=== PATIENT | female | born 1950 | race American Indian/Alaskan Native ===

== ENCOUNTER 2017-09-04 14:13 | Emergency (ER) | payer MEDICARE, BC ==
[2017-09-04 14:19] VITALS: BMI 25.7
[2017-09-04 14:24] VITALS: RESP 18; TEMP 98.7; O2SAT 97
--- NOTE | 2017-09-04 14:54 | RAD ---
HISTORY: chest pain COMPARISON: 12/29/2014 FINDINGS: LUNGS: No active pulmonary disease. PLEURA: No significant pleural effusion identified, no pneumothorax apparent. CARDIOVASCULAR: Mild cardiomegaly OSSEOUS STRUCTURES: No significant abnormalities. VISUALIZED UPPER ABDOMEN: Normal. OTHER FINDINGS: None. IMPRESSION: No active disease.
[2017-09-04 15:29] LABS: URINE BILIRUBIN NEGATIVE (NEGATIVE); URINE BLOOD NEGATIVE (NEGATIVE); URINE GLUCOSE (UA) NEGATIVE (NEGATIVE); URINE LEUKOCYTE ESTERASE NEGATIVE Leu/uL (NEGATIVE); URINE PROTEIN TRACE mg/dL (<30 mg/dL); URINE UROBILINOGEN 0.2 E.U./dL (<1 E.U./dL)
[2017-09-04 15:32] LABS: BASO # 0.02 K/mm3 (0.0-2.0); BASO % 0.3 % (0.0-3.0); EOS # 0.3 (0.0-0.7); EOS % 4.3 % (1.5-5.0); GRAN # 3.32 (1.4-6.5); GRAN % 53.3 % (50.0-68.0); HEMOGLOBIN 12.6 g/dL (12.0-16.0); LYMPH # 2.3 (1.2-3.4); LYMPH % 36.6 % (22.0-35.0); MEAN CELL VOLUME 88.6 fl (80.0-105.0); MEAN CORPUSCULAR HEMOGLOBIN 28.8 pg (25.0-35.0); MEAN CORPUSCULAR HGB CONC 32.5 g/dl (31.0-37.0); MEAN PLATELET VOLUME 10.9 fl (7.0-11.0); MONO # 0.3 (0.1-0.6); MONO % 5.5 % (1.0-6.0); RBC 4.38 10^6/uL (3.5-6.1); RED CELL DISTRIBUTION WIDTH 13.3 % (11.5-14.5); WHITE BLOOD COUNT 6.2 10^3/ul (4.5-11.0)
[2017-09-04 15:35] LABS: URINE APPEARANCE CLEAR (CLEAR); URINE COLOR YELLOW (YELLOW)
[2017-09-04 15:45] LABS: URINE BACTERIA FEW (NEG); URINE RBC NEGATIVE /hpf (0-2)
[2017-09-04 15:46] LABS: ALB/GLOB RATIO 1.4 (1.1-1.8); ALBUMIN 4.6 g/dL (3.0-4.8); ALT/SGPT 52 U/L (7-56); AST/SGOT 40 U/L (14-36); BLOOD UREA NITROGEN 17 mg/dL (7-21); CALCIUM 11.4 mg/dL (8.4-10.5); GFR AFRICAN-AMERICAN > 60; GFR NON-AFRICAN AMERICAN > 60
[2017-09-04 16:04] LABS: TROPONIN I < 0.01 ng/mL
[2017-09-04 16:18] VITALS: BP 159/107; PULSE 89
--- NOTE | 2017-09-04 19:10 | CARD ---
APPROVED REPORT EKG Measurement Heart [id number] <Conclusion> Sinus tachycardia with occasional premature ventricular complexes Possible Left atrial enlargement Left axis deviation Left ventricular hypertrophy with repolarization abnormality Abnormal ECG
--- NOTE | 2017-09-04 20:42 | ED PDOC ---
Arrival/HPI - General Chief Complaint: Palpitations Time Seen by Provider: 09/04/17 14:35 Historian: Patient - History of Present Illness Narrative History of Present Illness (Text): 09/04/17 14:36 A 66 year old female, whose past medical history includes hypertension, presents to the emergency department complaining of ongoing palpitations, worsened today. Patient states she has "a funny feeling when having palpitations ". 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 Patient denies any chest pain, shortness of breath, fever, cough or any other complaints at this time. Symptom Onset: Sudden Symptom Course: Unchanged Activities at Onset: Rest Context: Home Past Medical History - Provider Review Nursing Documentation Reviewed: Yes - Past History Past History: No Previous - Infectious Disease Hx of Infectious Diseases: None - Tetanus Immunization Tetanus Immunization: Unknown - Reproductive Menopause: Yes - Cardiac Hx [place]: Yes Hx Hypertension: Yes - Pulmonary Hx Respiratory Disorders: No - Neurological Hx Neurological Disorder: No - HEENT Hx HEENT Disorder: Yes (WEARS RX GLASSES) - Renal Hx Renal Disorder: No - Endocrine/Metabolic Hx Endocrine Disorders: No - Hematological/Oncological Hx Blood Disorders: No - Integumentary Hx Dermatological Disorder: No - Musculoskeletal/Rheumatological Hx Musculoskeletal Disorders: Yes Hx Arthritis: Yes Other/Comment: edema to lower extremeties - Gastrointestinal Hx Gastrointestinal Disorders: Yes Hx Gastroesophageal Reflux: Yes (TAKES ZANTAC PRN) - Genitourinary/Gynecological Hx Genitourinary Disorders: Yes (C SECTION X 1) - Psychiatric Hx Depression: No Hx Emotional Abuse: No Hx Substance Use: No - Past Surgical History Past Surgical History: No Previous - Surgical History Hx Cardiac Catheterization: Yes - Anesthesia Hx Anesthesia Reactions: No Hx Malignant Hyperthermia: No - Suicidal Assessment Feels Threatened In Home Enviroment: No Family/Social History - Physician Review Nursing Documentation Reviewed: Yes Family/Social History: No Known Family HX Smoking Status: Never Smoked Hx Alcohol Use: No Hx Substance Use: No Allergies/Home Meds Allergies/Adverse Reactions: Allergies No Known Allergies Allergy (Verified 12/29/14 12:20) Home Medications: Home Meds Medication Instructions Recorded Confirmed Metoprolol Succinate [Toprol XL] 100 mg PO DAILY 11/16/13 09/04/17 amLODIPine [Norvasc] 10 tab PO DAILY 05/21/14 09/04/17 Telmisartan [Micardis] 80 mg PO DAILY 03/18/17 09/04/17 Review of Systems - Physician Review All systems were reviewed & negative as marked: Yes - Review of Systems Constitutional: absent: Fevers Respiratory: absent: SOB, Cough Cardiovascular: Palpitations. absent: Chest Pain Physical Exam Vital Signs Reviewed: Yes Vital Signs Temp Pulse Resp BP Pulse Ox 09/04/17 16:17 89 18 159/107 H 97 09/04/17 14:13 98.7 F 102 H 18 166/116 H 97 Temperature: Afebrile Blood Pressure: Normal Pulse: Regular Respiratory Rate: Normal Appearance: Positive for: Well-Appearing, Non-Toxic, Comfortable Pain Distress: None Mental Status: Positive for: Alert and Oriented X 3 - Systems Exam Head: Present: Atraumatic, Normocephalic Pupils: Present: PERRL Extroacular Muscles: Present: EOMI Conjunctiva: Present: Normal Mouth: Present: Moist Mucous Membranes Neck: Present: Normal Range of Motion Respiratory/Chest: Present: Clear to Auscultation, Good Air Exchange. No: Respiratory Distress, Accessory Muscle Use Cardiovascular: Present: Regular Rate and Rhythm, Normal S1, S2. No: Murmurs Abdomen: No: Tenderness, Distention, Peritoneal Signs Back: Present: Normal Inspection Upper Extremity: Present: Normal Inspection. No: Cyanosis, Edema Lower Extremity: Present: Normal Inspection. No: Edema Neurological: Present: GCS=15, CN II-XII Intact, Speech Normal Skin: Present: Warm, Dry, Normal Color. No: Rashes Psychiatric: Present: Alert, Oriented x 3, Normal Insight, Normal Concentration Medical Decision Making ED Course and Treatment: 09/04/17 14:36 Impression: A 66 year old female with palpitations. Plan: -- EKG -- Chest X-ray -- labs -- Urinalysis -- Reassess and disposition Prior Visits: Notes and results from previous visits were reviewed. Patient was last seen in the emergency department on 12/29/14 for evaluation of palpitations and generalized weakness. Progress Notes: EKG: Ordered, reviewed, and independently interpreted the EKG. Rate : 103 BPM Rhythm : sinus tachycardia Interpretation : PVC, Left axis deviation 09/04/17 14:56 Chest X-ray Creator : Barry Gomez MD FINDINGS: LUNGS: No active pulmonary disease. PLEURA: No significant pleural effusion identified, no pneumothorax apparent. CARDIOVASCULAR: Mild cardiomegaly OSSEOUS STRUCTURES: No significant abnormalities. VISUALIZED UPPER ABDOMEN: Normal. IMPRESSION: No active disease. Case discussed with Dr. Curtis, who states patient to be started on Toprol xl 50 mg in the morning and to continue current medication regiment, patient in agreement and understanding. Patient will call Dr. Curtis in the morning for follow up. - Lab Interpretations Lab Results: 09/04/17 15:10 09/04/17 15:10 Lab Results 09/04/17 15:10: TSH 3rd Generation 1.77 09/04/17 15:10: Sodium 144, Potassium 3.2 L, Chloride 104, Carbon Dioxide 27, Anion Gap 16, BUN 17, Creatinine 0.8, Est GFR ( Amer) > 60, Est GFR (Non- Af Amer) > 60, Random Glucose 126 H, Calcium 11.4 H, Magnesium 2.2, Total Bilirubin 0.3, AST 40 H, ALT 52, Alkaline Phosphatase 73, Lactate Dehydrogenase 654, Total Creatine Kinase 124, Troponin I < 0.01, Total Protein 8.0, Albumin 4.6, Globulin 3.3, Albumin/Globulin Ratio 1.4 09/04/17 15:10: Urine Color Yellow, Urine Appearance Clear, Urine pH 7.0, Ur Specific Sargeant <= 1.005, Urine Protein Trace H, Urine Glucose (UA) Negative, Urine Ketones Negative, Urine Blood Negative, Urine Nitrate Negative, Urine Bilirubin Negative, Urine Urobilinogen 0.2, Ur Leukocyte Esterase Negative, Urine RBC Negative, Urine WBC 1 - 3, Ur Epithelial Cells 3 - 4, Urine Bacteria Few 09/04/17 15:10: WBC 6.2, RBC 4.38, Hgb 12.6, Hct 38.8, MCV 88.6, MCH 28.8, MCHC 32.5, RDW 13.3, Plt Count 209, MPV 10.9, Gran % 53.3, Lymph % (Auto) 36.6 H, Heard % (Auto) 5.5, Eos % (Auto) 4.3, Baso % (Auto) 0.3, Gran # 3.32, Lymph # ( Auto) 2.3, Heard # (Auto) 0.3, Eos # (Auto) 0.3, Baso # (Auto) 0.02 I have reviewed the lab results: Yes - RAD Interpretation Radiology Orders: 09/04/17 14:36 CHEST PORTABLE [RAD] Stat - EKG Interpretation Interpreted by ED Physician: Yes Type: 12 lead EKG - Scribe Statement The provider has reviewed the documentation as recorded by the Scribe Adriana Troncoso Provider Scribe Attestation: All medical record entries made by the Scribe were at my direction and personally dictated by me. I have reviewed the chart and agree that the record accurately reflects my personal performance of the history, physical exam, medical decision making, and the department course for this patient. I have also personally directed, reviewed, and agree with the discharge instructions and disposition. Disposition/Present on Arrival - Present on Arrival Any Indicators Present on Arrival: No History of DVT/PE: No History of Uncontrolled Diabetes: No Urinary Catheter: No History of Decub. Ulcer: No History Surgical Site Infection Following: None - Disposition Have Diagnosis and Disposition been Completed?: Yes Diagnosis: Palpitations Disposition: HOME/ ROUTINE Disposition Time: 16:15 Condition: GOOD Discharge Instructions (ExitCare): Palpitations (DC) Additional Instructions: Thank you for letting us take care of you today. The emergency medical care you received today was directed at your acute symptoms. If you were prescribed any medication, please fill it and take as directed. It may take several days for your symptoms to resolve. Return to the Emergency Department if your symptoms worsen, do not improve, or if you have any other problems. Please contact your doctor or call one of the physicians/clinics you have been referred to that are listed on the Patient Visit Information form that is included in your discharge packet. Bring any paperwork you were given at discharge with you along with any medications you are taking to your follow up visit. Our treatment cannot replace ongoing medical care by a primary care provider (PCP) outside of the emergency department. Thank you for allowing the [facility] team to be part of your care today. MEDICATIONS: MORNING: Norvasc Micardis Toprol XL 50MG (NEW MEDICATION) EVENING: Lipitor Toprol XL 100MG Call Dr. Curtis tomorrow morning for a follow up visit in his office. Prescriptions: Metoprolol Succinate [Toprol XL] 50 mg PO QAM #60 tab Referrals: Neto Kidd Jr., MD [Primary Care Provider] - Follow up with primary Clinton Curtis MD [Staff Provider] - Follow up with primary Forms: [employer] (Burmese)
== END 2017-09-04 16:30 | disposition home or self-care (01) ==
LOC: ED 14:13
DX: R00.2 Palpitations (principal); I10 Essential (primary) hypertension